=== PATIENT | male | born 1990 | race Caucasian/White ===

== ENCOUNTER 2017-08-02 01:49 | Observation (INO) | payer OTHER ==
[~2017-08-02] VITALS: Ht 175.3 cm; Wt 83.9 kg
[~2017-08-02 01:49] MED LIST: ACHD5005 PO
[2017-08-02 02:03] LABS: MEAN PLATELET VOLUME 10.6 FL (7.4-10.4); RED BLOOD COUNT 5.23 10^6/uL (4.35-5.85); RED CELL DISTRIBUTION WIDTH 12.5 % (10.0-14.5); WHITE BLOOD COUNT 14.2 10^3/uL (4.3-11.0)
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
[2017-08-02 02:21] LABS: ALANINE AMINOTRANSFERASE 70 U/L (0-55); ALBUMIN 4.5 GM/DL (3.2-4.5); ANION GAP 16 MMOL/L (5-14); ASPARTATE AMINO TRANSFERASE 54 U/L (5-34); BILIRUBIN,DIRECT 0.2 MG/DL (0.0-0.3); BILIRUBIN,INDIRECT 0.2 MG/DL; BILIRUBIN,TOTAL 0.4 MG/DL (0.1-1.0); BLOOD UREA NITROGEN 7 MG/DL (7-18); BUN/CREATININE RATIO 6; CALCIUM 8.7 MG/DL (8.5-10.1); CARBON DIOXIDE 20 MMOL/L (21-32); CHLORIDE 101 MMOL/L (98-107); CREATININE SERUM 1.09 MG/DL (0.60-1.30); GFR ESTIMATED > 60; GLUCOSE 142 MG/DL (70-105); POTASSIUM 3.9 MMOL/L (3.6-5.0); SODIUM 137 MMOL/L (135-145); TOTAL PROTEIN 7.7 GM/DL (6.4-8.2)
[2017-08-02 02:25] LABS: ALCOHOL 317 MG/DL (<10)
[2017-08-02] MEDS ORDERED: fentaNYL INJECTION 100 MCG/2 ML AMP IVP ONE (02:30)
[2017-08-02] MEDS ORDERED: ZIPRASIDONE 20 MG INJ (GEODON) VIAL IM ONE (02:30)
[2017-08-02] MEDS ORDERED: LIDOCAINE 1% INJ 20 ML (XYLOCAINE) VIAL INJ ONE (02:45)
[2017-08-02] MEDS ORDERED: CLINDAMYCIN INJECTION 600 MG in NS (IVPB) 50 ML IV ONE (03:30)
[2017-08-02 05:30] VITALS: BP 129/77
[2017-08-02 05:45] VITALS: BP 128/88
[2017-08-02 06:00] VITALS: BP 126/82
[2017-08-02] MEDS ORDERED: HALOPERIDOL 5 MG/ML (HALDOL) AMP IM PRN (06:30)
[2017-08-02] MEDS ORDERED: ACETAMINOPHEN 500 MG TAB (TYLENOL) PO PRN (06:30)
[2017-08-02] MEDS ORDERED: ONDANSETRON 4 MG/2 ML (SDV) Z0FRAN IV PRN ×2 (06:30→07:00)
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
[2017-08-02] MEDS ORDERED: LORazepam INJ 2 MG/ML (ATIVAN) VIAL IV PRN ×4 (06:45)
[2017-08-02] MEDS ORDERED: LORazepam 1 MG (ATIVAN) TAB PO PRN ×3 (06:45)
[2017-08-02] MEDS ORDERED: SENNA W/DOCUSATE (SENOKOT S) TABLET PO PRN (07:00)
[2017-08-02] MEDS ORDERED: [UNRECOGNIZED DRUG - OTHER] IV ONE ×6 (07:00)
[2017-08-02] MEDS ORDERED: THIAMINE IV ONE ×6 (07:00)
[2017-08-02] MEDS ORDERED: POTASSIUM CHLORIDE IV ONE ×6 (07:00)
[2017-08-02] MEDS ORDERED: FOLIC ACID IV ONE ×6 (07:00)
[2017-08-02] MEDS ORDERED: ANTACID SUSP 30 ML UDC (MYLANTA) PO PRN (07:00)
[2017-08-02] MEDS: fentaNYL INJECTION 100 MCG/2 ML AMP IV PRN ×3 (07:07→12:17)
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
[2017-08-02 08:00] VITALS: BP 108/67
[2017-08-02] MEDS ORDERED: LACTOBACILLUS Acidoph/Bulgar (LACTINEX/FLORANEX) TAB PO SCH (09:00)
[2017-08-02 12:00] VITALS: BP 127/83
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
--- NOTE | 2017-08-02 12:49 | Discharge Inst-Simple/Standard ---
Discharge Inst-Standard Discharge Medications New, Converted or Re-Newed RX: Other Patient Instructions/Follow Up Plan of Care/Instructions/FU: please call for clindamycin 150 mg 3 times a day for 5 days to his pharmacy with no refill. Please provide Dr. Nuñez's office number with instructions to seek an appointment on Friday. Follow-up with me in 2 weeks Activity as Tolerated: No Goal: off work until seen by Dr. Nuñez Discharge Diet: No Restrictions JAMES SOLIS MD Aug 02, 2017 12:49 pm
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
[2017-08-02] MEDS ORDERED: TETANUS & DIPHTHERIA TOX,ADULT 0.5 ML (TENIVAC) IM ONE (13:00)
[2017-08-02] MEDS ORDERED: CLIN150C17 PO (13:17)
[2017-08-02 15:26] VITALS: BP 118/66
[2017-08-02] MEDS ORDERED: CLINDAMYCIN INJECTION 300 MG in NS (IVPB) 50 ML IV SCH (15:30)
[2017-08-02] MEDS ORDERED: HYDR-3820 PO ×3 (18:25→18:29)
[2017-08-08] MEDS ORDERED: CLIN150C17 PO (11:41)
== END 2017-08-02 12:48 | disposition home or self-care (01) ==
LOC: EDUNIT# 01:49 → ER 01:52 → UNDOADMOB 04:50 → ICU 04:50 → UNDODISOB 14:00
PROVIDERS: ADMIT Surgery; ATTEND Surgery
DX: S02.2XXA Fracture of nasal bones, initial encounter for closed fracture (principal); S01.21XA Laceration without foreign body of nose, initial encounter; S01.81XA Laceration without foreign body of other part of head, initial encounter; Z23 Encounter for immunization; F17.210 Nicotine dependence, cigarettes, uncomplicated; F10.10 Alcohol abuse, uncomplicated; Y90.8 Blood alcohol level of 240 mg/100 ml or more; V58.5XXA Driver of pick-up truck or van injured in noncollision transport accident in traffic accident, initial encounter; W22.11XA Striking against or struck by driver side automobile airbag, initial encounter; Y92.410 Unspecified street and highway as the place of occurrence of the external cause; Y99.8 Other external cause status
CPT/HCPCS: 12054; 36415; 70450; 70486; 71010; 72125; 72170; 80048; 80076; 80320; 85027; 90714; 96365; 96372; 96375

== ENCOUNTER 2017-08-06 05:28 | Outpatient (CLI) | payer OTHER ==
[~2017-08-06] VITALS: Ht 175.3 cm; Wt 83.9 kg
[~2017-08-06 05:28] MED LIST changes: +CLIN150C17 PO; +HYDR-3820 PO
[2017-08-06] MEDS ORDERED: HYDR-3820 PO (10:16)
[2017-08-06] MEDS ORDERED: VNL75T PO (10:16)
[2017-08-06] MEDS ORDERED: QUET25TA73 PO (10:16)
[2017-08-06] MEDS ORDERED: ALPR0.5T7 PO (10:16)
[2017-08-08] MEDS ORDERED: CLIN150C17 PO (11:41)
== END 2017-08-06 10:22 ==
LOC: PREOP 05:28
PROVIDERS: ATTEND Specialist
DX: S02.2XXA Fracture of nasal bones, initial encounter for closed fracture; X58.XXXA Exposure to other specified factors, initial encounter; Y99.8 Other external cause status; Z01.818 Encounter for other preprocedural examination

== ENCOUNTER → 2017-08-14 | Outpatient (CLI) | payer OTHER ==
[~2017-08-14] MED LIST changes: +ALPR0.5T7 PO; +QUET25TA73 PO; +VNL75T PO
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
== END ==
LOC: RAD 14:37
PROVIDERS: ATTEND Nurse Practitioner Family
DX: R07.81 Pleurodynia (principal)
CPT/HCPCS: 71100

== ENCOUNTER → 2019-09-16 | Outpatient (CLI) | payer OTHER ==
--- NOTE | 2019-09-16 13:27 | Diagnostic Imaging Report ---
PROCEDURE: US Scrotum. TECHNIQUE: Multiple real-time grayscale images were obtained over the scrotum in various projections bilaterally. INDICATION: Scrotal mass. FINDINGS: The testicular parenchyma bilaterally appeared normal. Color Doppler blood flow to both testicles was normal. The right epididymis and scrotal contents appeared normal. No hernia, hydrocele or varicocele. The left epididymis is heterogeneously enlarged and shows abnormal elevated color Doppler blood flow. Findings likely reflect changes of epididymitis however the degree of hypervascularity somewhat less than would be expected given its heterogeneous enlargement. Other processes such as a benign adenomatoid tumor would be considered. Recommend follow-up exam in 1-2 months following resolution of symptomatology to see if the epididymis returns to normal appearance. IMPRESSION: 1. Likely but inconclusive findings of left-sided epididymitis. Follow-up recommended. 2. The testicles themselves were normal bilaterally. Dictated by: Dictated on workstation # [id number]
== END ==
LOC: RAD 12:28
DX: N50.89 Other specified disorders of the male genital organs (principal)
CPT/HCPCS: 76870

== ENCOUNTER → 2020-06-21 | Outpatient (CLI) | payer OTHER ==
[~2020-06-21] MED LIST changes: +ACHYD1T PO; -HYDR-3820 PO
--- NOTE | 2020-06-21 15:49 | Diagnostic Imaging Report ---
PROCEDURE: MR imaging cervical spine without contrast. TECHNIQUE: Multiplanar, multisequence MR imaging of the cervical spine was performed without contrast. INDICATION: Chronic neck pain and right shoulder pain. COMPARISON: No prior studies are available for comparison. FINDINGS: There is slight reversal of the normal cervical lordotic curvature. The marrow signal intensity is unremarkable. No geographic marrow lesion is seen. There is some mild generalized disc desiccation. Disc heights are fairly well maintained. The cervical cord shows normal homogeneous signal intensity and normal morphology. C2-C3: No central canal or neural foraminal narrowing is detected. C3-C4: Endplate osteophyte/disc complex does produce some slight flattening of the ventral thecal sac but central canal is patent. Neural foramina are patent. C4-C5: There is some flattening of the ventral thecal sac due to disc/osteophyte complex. Central canal and neural foramina remain patent. C5-C6: Endplate osteophytes indent the ventral thecal sac but central canal and neural foramina remain patent. C6-C7: No central canal or neural foraminal narrowing is detected. C7-T1: Central canal and neural foramina are widely patent. Paraspinous tissues are unremarkable. IMPRESSION: There is mild generalized cervical spondylosis. No focal disc protrusion is seen. No central canal or neural foraminal stenosis is detected. Note is made of reversal of the normal cervical lordotic curvature. Dictated by: Dictated on workstation # [id number]
--- NOTE | 2020-06-21 16:10 | Diagnostic Imaging Report ---
PROCEDURE: MRI right joint upper extremity without contrast. TECHNIQUE: Multiplanar, multisequence non contrast-enhanced MRI of the right upper extremity was accomplished. INDICATION: Chronic right shoulder and neck pain. COMPARISON: None. FINDINGS: No acute fracture is seen in the right shoulder. Alignment appears normal. There is no joint effusion. The supraspinatus tendon and infraspinatus tendon are intact. The teres minor and subscapularis tendons are intact. There is no muscular atrophy. The long head of the biceps tendon appears normal in course and signal. The glenoid labrum is suboptimally evaluated without intra-articular contrast. However, a tear of the glenoid labrum at the posterosuperior aspect is suspected given the presence of an elongated paralabral cyst which measures up to 1.6 x 0.4 x 1.8 cm in greatest dimensions. This extends into the suprascapular notch. There is also a small paralabral cyst seen inferiorly, measuring 4 mm. The acromion has a curved undersurface without hooking. The coracoclavicular and coracoacromial ligaments appear intact. Soft tissues about the right shoulder are otherwise unremarkable. IMPRESSION: 1. Paralabral cysts of the right glenoid labrum, consistent with tear, although a discrete tear is not seen on this exam. The posterosuperior paralabral cyst extends into the suprascapular notch. 2. No right rotator cuff tear. Dictated by: Dictated on workstation # [id number]
== END ==
LOC: RAD 14:34
DX: S43.431A Superior glenoid labrum lesion of right shoulder, initial encounter (principal); M47.812 Spondylosis without myelopathy or radiculopathy, cervical region
CPT/HCPCS: 72141; 73221